=== PATIENT | male | born 1965 | race Caucasian/White ===

== ENCOUNTER → 2016-03-28 | Outpatient (CLI) | payer OTHER ==
--- NOTE | 2016-03-29 02:19 | REP ---
Clinical: Acute cough . Comparison: 02/17/2016 . Technique: PA and lateral. Findings: The mediastinum and cardiac silhouette are normal. The lung thomas are clear and without acute consolidation, effusion, or pneumothorax. The skeletal structures are intact and normal. Impression: 1. No acute cardiopulmonary process. If the patient remains symptomatic consider chest CT for further investigation. Signed by Ajay Navarrete MD 03/29/2016 02:10 A
== END ==
LOC: M WUC 17:06
PROVIDERS: ATTEND Physician Assistant
DX: J10.1 Influenza due to other identified influenza virus with other respiratory manifestations (principal); R05 Cough

== ENCOUNTER 2016-07-29 16:17 | Emergency (ER) | payer OTHER ==
[~2016-07-29] VITALS: Ht 177.8 cm; Wt 149.7 kg
[2016-07-29] MEDS ORDERED: LISI-538 PO (16:45)
--- NOTE | 2016-07-29 17:58 | REP ---
AP AND LATERAL LEFT FOOT, TWO VIEWS: HISTORY: Heel pain. There is no acute fracture or dislocation. The joint spaces are normal in appearance. A small osteophyte is present on the posterior calcaneus. IMPRESSION: There is no acute fracture or dislocation. Signed by Phillip Pearson MD 07/29/2016 06:49 P
[2016-07-29] MEDS ORDERED: NORCO, ANEXSIA 5/325MG TABLET (HYDROcodone/ACETAMINOPHEN) PO ONE (18:30)
[2016-07-29] MEDS ORDERED: INDO50CA PO (18:41)
[2016-07-29 19:09] VITALS: BP 198/113
== END 2016-07-29 19:11 | disposition home or self-care (01) ==
LOC: M ED 17:30
DX: M77.42 Metatarsalgia, left foot (principal); M76.62 Achilles tendinitis, left leg; I10 Essential (primary) hypertension; Z79.899 Other long term (current) drug therapy; Z88.0 Allergy status to penicillin

== ENCOUNTER → 2016-11-16 | Outpatient (REF) | payer OTHER ==
[~2016-11-16] MED LIST: INDO50CA PO; LISI-538 PO
== END ==
LOC: M LAB REF 19:42
PROVIDERS: ATTEND Physician Assistant Medical
DX: J02.9 Acute pharyngitis, unspecified (principal)

== ENCOUNTER → 2017-03-14 | Outpatient (CLI) | payer OTHER ==
[2017-03-14 13:40] LABS: BASO # 0.1 10^3/uL (0.0-0.2); BASO % 0.6 % (0.0-1.0); EOS # 0.4 10^3/uL (0.0-0.50); HEMATOCRIT 47.2 % (42.0-52.0); IMMATURE GRANULOCYTE % 0.5 % (0-0); LYMPH # 2.5 10^3/uL (1.5-4.5); LYMPH % 28.3 % (24.0-44.0); MEAN CORPUSCULAR HGB CONC 33.9 g/dl (32.0-36.5); MEAN CORPUSCULAR VOLUME 85.5 fl (80.0-96.0); MONO # 0.8 10^3/uL (0.0-0.8); MONO % 8.9 % (0.0-5.0); NEUTROPHILS % 57.7 % (36.0-66.0); PLATELET COUNT, AUTOMATED 226 10^3/uL (150-450); RED BLOOD COUNT 5.52 10^6/uL (4.30-6.10); RED CELL DISTRIBUTION WIDTH 12.5 % (11.5-14.5); WHITE BLOOD COUNT 8.7 10^3/uL (4.0-10.0)
[2017-03-14 14:00] LABS: ALBUMIN 4.3 GM/DL (3.2-5.2); ALKALINE PHOSPHATASE 86 U/L (45-117); ALT/SGPT 84 U/L (12-78); ANION GAP 6 MEQ/L (8-16); AST/SGOT 46 U/L (7-37); BILIRUBIN,TOTAL 0.6 MG/DL (0.2-1.0); BLOOD UREA NITROGEN 17 MG/DL (7-18); CALCIUM LEVEL 8.8 MG/DL (8.5-10.1); CARBON DIOXIDE LEVEL 29 MEQ/L (21-32); CHLORIDE LEVEL 103 MEQ/L (98-107); CREATININE FOR GFR 1.19 MG/DL (0.70-1.30); FREE T4 1.09 NG/DL (0.76-1.46); GLOMERULAR FILTRATION RATE > 60.0 (>56); GLUCOSE, FASTING 143 MG/DL (70-105); PHOSPHORUS LEVEL 2.2 MG/DL (2.5-4.9); POTASSIUM SERUM 4.2 MEQ/L (3.5-5.1); SODIUM LEVEL 138 MEQ/L (136-145); TOTAL PROTEIN 7.6 GM/DL (6.4-8.2)
[2017-03-14 14:19] LABS: ESTIMATED AVERAGE GLUCOSE 128 MG/DL (60-110); HEMOGLOBIN A1c 6.1 %
== END ==
LOC: M WUC 10:39
DX: I10 Essential (primary) hypertension (principal)
CPT/HCPCS: 84443

== ENCOUNTER 2017-04-05 09:17 | Emergency (ER) | payer OTHER ==
[2017-04-05 10:11] LABS: BASO % 0.4 % (0.0-1.0); EOS # 0.4 10^3/uL (0.0-0.50); EOS % 4.4 % (0.0-3.0); HEMATOCRIT 44.9 % (42.0-52.0); HEMOGLOBIN 15.5 g/dl (14.0-18.0); IMMATURE GRANULOCYTE % 0.5 % (0-0); LYMPH # 2.4 10^3/uL (1.5-4.5); LYMPH % 28.6 % (24.0-44.0); MEAN CORPUSCULAR HEMOGLOBIN 29.3 pg (27.0-33.0); MEAN CORPUSCULAR HGB CONC 34.5 g/dl (32.0-36.5); MEAN CORPUSCULAR VOLUME 84.9 fl (80.0-96.0); MONO # 0.6 10^3/uL (0.0-0.8); MONO % 7.1 % (0.0-5.0); PLATELET COUNT, AUTOMATED 233 10^3/uL (150-450); RED BLOOD COUNT 5.29 10^6/uL (4.30-6.10); RED CELL DISTRIBUTION WIDTH 12.5 % (11.5-14.5); WHITE BLOOD COUNT 8.4 10^3/uL (4.0-10.0)
[2017-04-05] MEDS: ONDANSETRON 4MG/2ML VIAL (J2405) IV ×2 (10:13)
[2017-04-05] MEDS: KETOROLAC 30 MG/ML VIAL (J1885) IV ×2 (10:13)
[2017-04-05] MEDS: NS 1,000 ML IV ×2 (10:14)
[2017-04-05] MEDS: MORPHINE 4 MG/ML 1ML VIAL (J2270) IV ×4 (10:14→11:01)
[2017-04-05] MEDS: LISINOPRIL 40 MG TAB PO ×2 (10:14)
[2017-04-05 10:48] LABS: ALBUMIN 4.1 GM/DL (3.2-5.2); ALBUMIN/GLOBULIN RATIO 1.08 (1.00-1.93); ALKALINE PHOSPHATASE 80 U/L (45-117); ALT/SGPT 114 U/L (12-78); AMYLASE 44 U/L (25-115); ANION GAP 7 MEQ/L (8-16); AST/SGOT 50 U/L (7-37); BILIRUBIN,DIRECT 0.2 MG/DL (0.0-0.2); BILIRUBIN,TOTAL 0.7 MG/DL (0.2-1.0); BLOOD UREA NITROGEN 16 MG/DL (7-18); CALCIUM LEVEL 8.9 MG/DL (8.5-10.1); CARBON DIOXIDE LEVEL 28 MEQ/L (21-32); CHLORIDE LEVEL 107 MEQ/L (98-107); CREATININE FOR GFR 1.33 MG/DL (0.70-1.30); GLOMERULAR FILTRATION RATE > 60.0 (>56); GLUCOSE, FASTING 125 MG/DL (70-100); LIPASE 129 U/L (73-393); POTASSIUM SERUM 3.9 MEQ/L (3.5-5.1); SODIUM LEVEL 142 MEQ/L (136-145); TOTAL PROTEIN 7.9 GM/DL (6.4-8.2)
[2017-04-05 11:04] LABS: KETONE, URINE AUTO RFX NEGATIVE (NEGATIVE); LEUKOCYTE ESTERASE UR AUTO RFX NEGATIVE (NEGATIVE); MUCUS, URINE RFX SMALL (NEGATIVE); NITRITE, URINE AUTO RFX NEGATIVE (NEGATIVE); RBC, URINE AUTO RFX TNTC /HPF (0-3); SPECIFIC GRAVITY UR AUTO RFX 1.023 (1.002-1.035); SQUAM EPITHELIAL CELL UR AURFX 0 /HPF (0-6); WBC, URINE AUTO RFX 2 /HPF (0-3)
[2017-04-05] MEDS: NORCO 5/325MG TABLET (BULK FOR ED) PO ×2 (11:59)
== END 2017-04-05 12:13 | disposition home or self-care (01) ==
LOC: M ED 09:17
DX: N23 Unspecified renal colic (principal); N13.30 Unspecified hydronephrosis; I10 Essential (primary) hypertension; Z79.899 Other long term (current) drug therapy; Z88.0 Allergy status to penicillin
CPT/HCPCS: J2270; J2405

== ENCOUNTER 2017-10-30 15:30 | Emergency (ER) | payer OTHER ==
[2017-10-30] MEDS: ASPIRIN 81 MG CHEW TABLET PO (14:41)
[2017-10-30] MEDS: ACETAMINOPHEN TAB 650MG DOSE (2X325MG) PO (14:41)
[2017-10-30 14:50] LABS: BASO # 0.1 10^3/uL (0.0-0.2); BASO % 0.3 % (0.0-1.0); EOS # 0.3 10^3/uL (0.0-0.50); EOS % 1.8 % (0.0-3.0); IMMATURE GRANULOCYTE % 0.5 % (0-3.0); LYMPH # 1.5 10^3/uL (1.5-4.5); LYMPH % 10.2 % (24.0-44.0); MEAN CORPUSCULAR HEMOGLOBIN 29.2 pg (27.0-33.0); MEAN CORPUSCULAR VOLUME 85.8 fl (80.0-96.0); MONO # 1.1 10^3/uL (0.0-0.8); MONO % 7.3 % (0.0-5.0); NEUTROPHILS # 11.8 10^3/uL (1.8-7.7); NEUTROPHILS % 79.9 % (36.0-66.0); PLATELET COUNT, AUTOMATED 211 10^3/uL (150-450); RED BLOOD COUNT 5.48 10^6/uL (4.30-6.10); RED CELL DISTRIBUTION WIDTH 12.6 % (11.5-14.5); WHITE BLOOD COUNT 14.7 10^3/uL (4.0-10.0)
[2017-10-30 15:15] LABS: ALBUMIN 4.4 GM/DL (3.2-5.2); ALKALINE PHOSPHATASE 75 U/L (45-117); ALT/SGPT 85 U/L (12-78); AMYLASE 43 U/L (25-115); ANION GAP 11 MEQ/L (8-16); AST/SGOT 46 U/L (7-37); BILIRUBIN,DIRECT 0.2 MG/DL (0.0-0.2); BILIRUBIN,TOTAL 0.9 MG/DL (0.2-1.0); BLOOD UREA NITROGEN 18 MG/DL (7-18); CALCIUM LEVEL 8.8 MG/DL (8.5-10.1); CARBON DIOXIDE LEVEL 25 MEQ/L (21-32); CHLORIDE LEVEL 105 MEQ/L (98-107); CPK CREATINE PHOSPHOKINASE 275 U/L (39-308); CREATININE FOR GFR 1.22 MG/DL (0.70-1.30); GLOMERULAR FILTRATION RATE > 60.0 (>56); GLUCOSE, FASTING 92 MG/DL (70-100); LIPASE 116 U/L (73-393); POTASSIUM SERUM 3.9 MEQ/L (3.5-5.1); SODIUM LEVEL 141 MEQ/L (136-145); TOTAL PROTEIN 8.4 GM/DL (6.4-8.2); TROPONIN I < 0.02 NG/ML (< 0.10)
[2017-10-30 15:20] LABS: CK-MB VALUE MASS 4.4 NG/ML (<3.6); NT-PRO BNP 125 PG/ML (<125); THYROID STIMULATING HORMONE 0.619 uIU/ML (0.358-3.740)
[2017-10-30 15:47] LABS: INFLUENZA A AMPLIFICATION NEGATIVE (NEGATIVE); INFLUENZA B AMPLIFICATION NEGATIVE (NEGATIVE)
[2017-10-30] MEDS: GI COCKTAIL 50ML BTL(HYOSCYAMINE/MAALOX/LIDOCAINE VISCOUS)(1:3:1) PO (16:45)
[2017-10-30 19:09] LABS: CK-MB VALUE MASS 2.8 NG/ML (<3.6); CPK CREATINE PHOSPHOKINASE 216 U/L (39-308); MB/CK RELATIVE INDEX 1.29 (< OR =4); TROPONIN I < 0.02 NG/ML (< 0.10)
[2017-10-30] MEDS: LISINOPRIL 40 MG TAB PO (20:03)
== END 2017-10-30 20:05 | disposition home or self-care (01) ==
LOC: M ED 15:30
DX: B34.9 Viral infection, unspecified (principal); R50.9 Fever, unspecified; R10.13 Epigastric pain; I10 Essential (primary) hypertension; K82.1 Hydrops of gallbladder; N40.0 Benign prostatic hyperplasia without lower urinary tract symptoms; Z82.49 Family history of ischemic heart disease and other diseases of the circulatory system; Z88.0 Allergy status to penicillin; Z79.899 Other long term (current) drug therapy
CPT/HCPCS: 71046

== ENCOUNTER 2020-05-17 22:40 | Observation (INO) | payer BC, OTHER ==
[~2020-05-17] VITALS: Ht 177.8 cm; Wt 126.4 kg
[~2020-05-17 22:40] MED LIST changes: +DOXY150C PO; +FLOM0.4C39 PO; +HYDR-3715 PO; +IBUP-1022 PO; -INDO50CA PO; +INDO50CA91 PO; -LISI-538 PO; +LISI20TA33 PO; +LISI40TA4 PO; +ZOFR4TAB14 PO
[2020-05-17] MEDS ORDERED: ECOT81TA5 PO (23:34)
[2020-05-17] MEDS ORDERED: PRED20TA PO (23:34)
[2020-05-17] MEDS ORDERED: IVER1TAB PO (23:34)
[2020-05-17] MEDS ORDERED: BENZ200C70 PO (23:34)
[2020-05-18] VITALS (11 sets, daily range): BP systolic 112–149; BP diastolic 66–75; O2SAT 89–96
[2020-05-18 00:06] LABS: ABG BASE EXCESS 0.7 (-2.0-2.0); ABG HCO3 23.6 MEQ/L (22.0-26.0); ABG O2 SATURATION 90.5 % (95.0-99.0); ABG PARTIAL PRESSURE CO2 33.4 mmHg (35.0-45.0); ABG PARTIAL PRESSURE O2 56.3 mmHg (75.0-100.0); ABG STANDARD HCO3 24.9 MEQ/L (22.0-26.0); ABG TOTAL CO2 24.6 MEQ/L (22.0-29.0); ABG pH (ARTERIAL) 7.467 UNITS (7.350-7.450)
[2020-05-18 00:20] LABS: HEMATOCRIT 50.4 % (42.0-52.0); HEMOGLOBIN 16.9 g/dl (13.5-17.5); MEAN CORPUSCULAR HEMOGLOBIN 28.5 pg (27.0-33.0); MEAN CORPUSCULAR HGB CONC 33.5 g/dl (32.0-36.5); PLATELET COUNT, AUTOMATED 170 10^3/uL (150-450); RED BLOOD COUNT 5.93 10^6/uL (4.30-6.10); WHITE BLOOD COUNT 4.5 10^3/uL (4.0-10.0)
[2020-05-18 00:31] LABS: D-DIMER QUANT 466.54 ng/ml (<500)
[2020-05-18 00:34] LABS: ALBUMIN 3.2 GM/DL (3.2-5.2); ALT/SGPT 96 U/L (12-78); BILIRUBIN,DIRECT 0.4 MG/DL (0.0-0.2); BILIRUBIN,TOTAL 0.7 MG/DL (0.2-1.0); BLOOD UREA NITROGEN 23 MG/DL (7-18); CALCIUM LEVEL 8.3 MG/DL (8.5-10.1); CARBON DIOXIDE LEVEL 30 MEQ/L (21-32); CHLORIDE LEVEL 104 MEQ/L (98-107); CK-MB VALUE MASS 1.1 NG/ML (<3.6); CPK CREATINE PHOSPHOKINASE 370 U/L (39-308); GLOMERULAR FILTRATION RATE > 60.0 (>56); GLUCOSE, FASTING 152 MG/DL (70-100); NT-PRO BNP 67 PG/ML (<125); SODIUM LEVEL 140 MEQ/L (136-145); TOTAL PROTEIN 7.1 GM/DL (6.4-8.2); TROPONIN I < 0.02 NG/ML (< 0.10)
--- NOTE | 2020-05-18 00:39 | REPVR ---
PROCEDURE INFORMATION: Exam: XR Chest Exam date and time: 05/17/2020 11:59 PM Age: 54 years old Clinical indication: Cough and dyspnea; Additional info: Dyspnea/cough TECHNIQUE: Imaging protocol: XR of the chest Views: 1 view. COMPARISON: CR Chest, 2 view PA, Lat 10/30/2017 2:38 PM FINDINGS: Lungs: In bibasilar infiltrates and atelectasis since the prior study. Slight cephalization of blood flow. Pleural spaces: Probable small left pleural effusion. Heart/Mediastinum: Borderline cardiomegaly despite the AP and lordotic projection. Bones/joints: Unremarkable. Soft tissues: There are generous overlying soft tissues. IMPRESSION: Borderline cardiomegaly with bibasilar infiltrates and atelectasis and probable left pleural effusion suggesting mild interval congestive failure since 10/30/2017. Pneumonia is not excluded. Electronically signed by: Octavio Chaidez On 05/18/2020 00:39:07 AM
[2020-05-18 00:59] LABS: ATYPICAL LYMPH 8 % (0-5); LYMPHOCYTES 19 % (16-44); MONOCYTES 7 % (0-5); NEUTROPHILS 66 % (28-66); PLATELET ESTIMATE NORMAL (NORMAL)
[2020-05-18] MEDS ORDERED: ACETAMINOPHEN TAB 650MG DOSE (2X325MG) PO SCH (02:05)
[2020-05-18] MEDS ORDERED: ALBUTEROL SULFATE 2.5 MG/0.5 ML INH NEB SOLN NEB PRN (02:05)
[2020-05-18] MEDS ORDERED: ALBUTEROL 90 MCG/ACT 8GM HFA INHALER INH PRN (02:20)
[2020-05-18 02:25] LABS: INR 0.92; PROTHROMBIN TIME 12.6 SECONDS (12.5-14.3)
[2020-05-18 02:26] LABS: PARTIAL THROMBOPLASTIN TIME 28.1 SECONDS (24.2-38.5)
[2020-05-18 02:35] LABS: C REACTIVE PROTEIN QUANTITATIV 2.24 MG/DL (0.00-0.30); FERRITIN 1867 NG/ML (26-388); LDH LACTATE DEHYDROGENASE 416 U/L (87-241)
--- NOTE | 2020-05-18 02:42 | HPEPDOC ---
[facility] Medical History & Physical Date of Admission May 18, 2020 Date of Service: May 18, 2020 Primary Care Physician: Feliz Santo Attending Physician: JUAN SANDOVAL MD History and Physical CHIEF COMPLAINT: [SOB.] HISTORY OF PRESENT ILLNESS: [This is a 54 year old male who presents to the ED approx. 10 days after he began having symptoms of shortness of breath, cough, and fatigue. Patient reported to urgent care for these symptoms on 05/10 and was subsequently diagnosed with COVID19. Patient states that his symptoms have not been improving and have been getting worse. Patient has taken tylenol and nyquil for his symptoms at home to mild relief. Patient states that he has albuterol at home but is unable to draw from the inhaler as the deep breath causes him discomfort and makes him cough. Patient states that his primary complaint is his shortness of breath. Patient also admits to nausea, vomiting, diarrhea, dark stools, malaise, headache. Patient denies purulent sputum, hematemesis, dizziness, lightheadedness, syncope, chest pain. ] REVIEW OF SYSTEMS: CONSTITUTIONAL: [See HPI]. HEENT: [See HPI]. CARDIOVASCULAR: [See HPI]. RESPIRATORY: [See HPI]. GASTROINTESTINAL: [See HPI]. GENITOURINARY: [Denies dysuria]. SKIN: [Denies rash]. MUSCULOSKELETAL: [Denies joint pain]. NEUROLOGICAL: [See HPI]. ENDOCRINE: [Denies hx of diabetes]. HEMATOLOGIC/LYMPHATIC: [Denies easy bruising, edema]. PAST MEDICAL HISTORY: 1. [HTN]. 2. [MELISSA]. 3. [Obesity]. SOCIAL HISTORY: Tobacco use:[no] ETOH: [occasional] Illicit drug use: [no] ALLERGIES: Please see below. HOME MEDICATIONS: Please see below. PHYSICAL EXAMINATION: VITAL SIGNS: see below GENERAL APPEARANCE: [This is an acutely ill appearing 54 y/o M. He is sitting uncomfortably in bed and appear short of breath.]. HEENT: [No mass or lesion. EOMI. No scleral icterus. Nares patent. Oral mucosa moist without erythema]. CARDIOVASCULAR: [Regular rate, rhythm. No murmurs, rubs, gallops]. LUNGS: [Patient unable to take deep breaths without coughing. Rales heard throughout lung thomas.]. ABDOMEN: [Soft, tenderness to epigastrum, luq, llq.]. EXTREMITIES: [No peripheral edema. Good pulses. No clubbing, cyanosis.]. NEUROLOGICAL: [A+Ox3. Speech clear. No focal deficits.]. PSYCHIATRIC: [Mood and affect appear appropriate.]. LABORATORY DATA: See below. IMAGING: [CXR: FINDINGS: Lungs: In bibasilar infiltrates and atelectasis since the prior study. Slight cephalization of blood flow. Pleural spaces: Probable small left pleural effusion. Heart/Mediastinum: Borderline cardiomegaly despite the AP and lordotic projection. Bones/joints: Unremarkable. Soft tissues: There are generous overlying soft tissues. IMPRESSION: Borderline cardiomegaly with bibasilar infiltrates and atelectasis and probable left pleural effusion suggesting mild interval congestive failure since 10/30/2017. Pneumonia is not excluded. ] MICROBIOLOGY: Please see below. ASSESSMENT/PLAN: 1. [Hypoxemia secondary to COVID19 - Patient has been experiencing increasing shortness of breath over the past 10 days. Upon presentation to the ER, he was found to be hypoxic with sats in the low 90s. As of my examination of the patient, he was on 3L nasal cannula with sats around 92-94. Although this patient's labs and vitals are not at poor levels, I am concerned that due to this patient's comorbidities and his clinical picture, he is at a high risk of requiring increasingly high supplemental O2. We will keep a close eye on this patient's O2 levels and continuous pulse oximetry has been ordered. - Baseline inflammatory markers ordered - We will begin dexamethasone - I am not beginning remdesevir due to this patient being well out of the 5 day window. - Albuterol, tylenol ordered - We will give this patient IVF due to his poor oral intake at home - I believe we should have a low threshold for consult pulm/staff internist office based only in this patient 2. Melena - Patient reports black stools. - Stool occult blood ordered to investigate small possibility of gi bleed - IV PPI 3. HTN - continue lisinopril 4. MELISSA - Patient states he does not use CPAP at home. We can consider using it while in the hospital due to patient's condition. 5. Obesity - Unfortunately, this patient's weight makes his prognosis more poor and affects treatment. - Patient should follow up with PCP outpatient for diet/lifestyle modification discussions 6. DVT prophylaxis - Lovenox per protocol]. Vital Signs Vital Signs Date Time Temp Pulse Resp B/P (MAP) Pulse Ox O2 Delivery O2 Flow Rate FiO2 05/18/20 00:40 54 19 94 Nasal Cannula 3.0 05/17/20 23:14 99.1 125/73 (90) Laboratory Data Labs 24H Laboratory Tests 2 05/17/20 23:44: Blood Gas Bicarbonate Standard 24.9, Arterial Blood pH 7.467H, Arterial Blood Partial Pressure CO2 33.4L, Arterial Blood Partial Pressure O2 56.3L, Arterial Blood Total CO2 24.6, Arterial Blood HCO3 23.6, Arterial Blood Base Excess 0.7, Arterial Blood Oxygen Saturation 90.5L 05/17/20 23:52: Neutrophils (%) (Auto) , Nucleated Red Blood Cells % (auto) 0.0, Neutrophils 66, Lymphocytes (Manual) 19, Monocytes (Manual) 7H, Atypical Lymphocytes 8H, Platelet Estimate NORMAL, D-Dimer, Quantitative 466.54, Anion Gap 6L, Glomerular Filtration Rate > 60.0, Calcium Level 8.3L, Total Bilirubin 0.7, Direct Bilirubin 0.4H, Aspartate Amino Transf (AST/SGOT) 74H, Alanine Aminotransferase (ALT/SGPT) 96H, Alkaline Phosphatase 58, Total Creatine Kinase 370H, Creatine Kinase MB 1.1, Creatine Kinase MB Relative Index 0.30, Troponin I < 0.02, VK-Ywz-X-Type Natriuretic Peptide 67, Total Protein 7.1, Albumin 3.2, Albumin/Globulin Ratio 0.8 05/17/20 23:59: POC Troponin I (Misc) 0.00 05/18/20 02:02: CBC/BMP Laboratory Tests 05/17/20 23:52 Microbiology Microbiology 05/17/20 Blood Culture, Received Pending 05/17/20 Blood Culture, Received Pending Home Medications Scheduled Amlodipine Besylate (Amlodipine Besylate) 10 Mg Tablet, 10 MG PO DAILY Aspirin (Ecotrin) 81 Mg Tablet.dr, 81 MG PO DAILY Dexamethasone (Dexamethasone) 1.5 Mg Tab.ds.pk, 3 MG PO DAILY Take 2 Tabs once daily for 5 days Lisinopril (Lisinopril) 40 Mg Tablet, 40 MG PO DAILY Pantoprazole Sodium (Pantoprazole Sodium) 40 Mg Tablet.dr, 40 MG PO DAILY Scheduled PRN Albuterol Sulfate (Ventolin Hfa) 18 Gm Hfa.aer.ad, 2 PUFFS INH QID PRN for SHORTNESS OF BREATH Benzonatate (Benzonatate) 200 Mg Capsule, 200 MG PO Q8H PRN for COUGH Ibuprofen (Ibuprofen) 200 Mg Capsule, 600 MG PO TID PRN for PAIN Ondansetron HCl (Ondansetron HCl) 4 Mg Tablet, 4 MG PO TID PRN for NAUSEA OR VOMITING Allergies Coded Allergies: Penicillins (Verified Allergy, Unknown, 05/18/20) A-FIB/CHADSVASC A-FIB History Current/History of A-Fib/PAF?: No Attending Note Attending Note time of service 250am is a 54 yr old M w a hx of HTN, MELISSA and obesity who is admitted for management of hypoxemia 2/2 COVID. He is also c/o melena and will be treated for presumed UGIB pending heme occult. rest per GONZALO Torres's H&P EMILY TORRES May 18, 2020 02:42 JUAN SANDOVAL MD May 18, 2020 07:10
[2020-05-18 05:05] LABS: APPEARANCE, URINE CLEAR (CLEAR); BACTERIA, URINE AUTO NEGATIVE (NEGATIVE); BILIRUBIN, URINE AUTO NEGATIVE (NEGATIVE); BLOOD, URINE BLOOD NEGATIVE (NEGATIVE); COLOR, URINE YELLOW (YELLOW); GLUCOSE, URINE (UA) AUTO NEGATIVE (NEGATIVE); KETONE, URINE AUTO NEGATIVE (NEGATIVE); LEUKOCYTE ESTERASE, URINE AUTO NEGATIVE (NEGATIVE); MUCUS, URINE SMALL (NEGATIVE); NITRITE, URINE AUTO NEGATIVE (NEGATIVE); PROTEIN, URINE AUTO NEGATIVE (NEGATIVE); RBC, URINE AUTO 1 /HPF (0-3); SPECIFIC GRAVITY URINE AUTO 1.023 (1.002-1.035); SQUAMOUS EPITHELIAL CELL UR AU 0 /HPF (0-6); WBC, URINE AUTO 1 /HPF (0-3)
[2020-05-18] MEDS ORDERED: PANTOPRAZOLE 40MG VIAL (C9113 PER 1) IV SCH ×2 (05:10→09:00)
[2020-05-18] MEDS: PANTOPRAZOLE 40MG VIAL (C9113 PER 1) IV SCH ×2 (08:17→22:04)
[2020-05-18] MEDS: dexameTHASONE 4 MG/ML 1ML VIAL (J1100 PER 1MG) IV SCH (08:17)
[2020-05-18] MEDS ORDERED: IBUP200C29 PO (08:34)
[2020-05-18] MEDS ORDERED: VENTAER INH (08:34)
[2020-05-18] MEDS ORDERED: ONDA-83 PO (08:34)
[2020-05-18] MEDS ORDERED: AMLO1TAB25 PO (08:34)
[2020-05-18] MEDS ORDERED: LISI40TA4 PO (08:34)
[2020-05-18] MEDS ORDERED: AZIT-10 PO (08:34)
[2020-05-18] MEDS ORDERED: ENOXAPARIN 150MG/ML SYRINGE (J1650 PER 10MG) SC SCH (09:00)
[2020-05-18] MEDS ORDERED: TAMSULOSIN 0.4 MG CAP PO SCH (09:00)
[2020-05-18] MEDS ORDERED: ASPIRIN 81MG ENTERIC TABLET PO SCH (09:00)
[2020-05-18] MEDS: lisinopriL 40 MG TAB PO SCH (10:02)
[2020-05-18] MEDS ORDERED: REMDESIVIR 200 MG in NS 250 ML IV ONE (15:00)
--- NOTE | 2020-05-18 15:19 | IPNPDOC ---
Date Seen The patient was seen on 05/18/20. Progress Note SUBJECTIVE: Patient was seen and examined this morning. He continues to have shortness and cough. He denies any chest pain or tightness. There have been no adverse events reported overnight OBJECTIVE PHYSICAL EXAMINATION: VITAL SIGNS: Please see below. GENERAL: Awake, alert, and oriented. Appears in no acute distress. Lying in bed comfortably. HEENT: Atraumatic, normocephalic. Eyes are nonicteric. Trachea is midline. Mucous membranes are pink and moist. Nasal cannula is in place CARDIOVASCULAR: Normal S1, S2. Regular rate and rhythm. No clicks rubs or murmurs. RESPIRATORY: Bilateral crackles in the lower lung thomas. No wheezing or rhonchi. Symmetric chest expansion. ABDOMINAL: Soft. Obese. Nondistended. Nontender. Normoactive bowel sounds throughout EXTREMITIES: No edema. Full and equal pulses in bilateral upper and lower extremities. NEUROLOGICAL: No focal neurological deficits PSYCHOLOGICAL: Mood and affect appear appropriate LABORATORY DATA, IMAGING STUDIES, MICROBIOLOGY: Please see below. DVT prophylaxis ordered?: Lovenox ASSESSMENT AND PLAN: Patient is a 54 year old male with a past medical history significant for hypertension, obesity, and hyperlipidemia who presented to [facility] for worsening shortness of breath and cough. Patient developed cough on 05/06/20. He subsequently tested positive for COVID-19 on 05/10/20. Since that time he has developed worsening shortness of breath and cough and presented on 05/18/20. PROBLEMS: 1. Hypoxia 2/2 COVID-19 Pneumonia -Patient presented with worsening shortness of breath, cough, and bilateral pulmonary infiltrates on chest x-ray. COVID-19 test was positive on 05/10/20. Patients onset of symptoms was around 05/06/20. -Continues to be hypoxic. Requiring 4L of NC currently. -Does not appear to be a secondary bacterial pneumonia at this point. Additionally procalcitonin is not elevated making this unlikely. Will not add antibiotics -Will encourage proning when awake. -Encourage out of bed to chair -Incentive spirometry ordered -Continue Albuterol HFA -Continue Decadron 6mg IV daily -Patient does appear to be at the end of the viral replication stage of infection and would therefore likely benefit from Remdesivir. Will give loading dose today 2. Pleural effusion and Cardiomegaly -Patient has cardiomegaly and a left sided pleural effusion on chest x-ray. Possibly suggestive of vascular congestion. No prior history of CHF. Will order Echocardiogram. He does have hypertension and MELISSA for which he is noncompliant with CPAP. Likely has some degree of pulmonary hypertension. Echocardiogram will help further evaluate this 3. Hypertension -Continue patients lisinopril 4. Elevated Transaminases -Mildly elevated transaminases. Likely secondary to fatty liver disease although he was reportedly started on Ivermectin by his PCP for treatment of his COVID-19. -His Ivermectin will be discontinued during hospitalization and on discharge. There is no current available evidence to suggest benefit of Ivermectin in COVID-19. Additionally this medication can cause transaminase elevation. - He is receiving Remdesivir which may increase transaminases. Will trend. Otherwise patient will need to follow-up outpatient for management and trending of his LFTs 5. Dark Stools -Patient had mentioned dark stools at one point. He has not mentioned this to me today. A FOBT has been ordered. Hgb is stable at 16.9. There does not appear to be a GI bleed however will monitor 6. Obstructive Sleep Apnea -Reported history of MELISSA. Not on CPAP at home. Anticipate that this may contribute to worsening hypoxia overnight. 7. GI prophylaxis -Continue Protonix 8. DVT prophylaxis -Reduced Lovenox to 40mg daily. No indication for higher dosing at this point DISPOSITION: Plan for supportive care. Titrate oxygen, awake pronation, and incentive spirometry. Pending clinical improvement likely D/C home. Anticipate D/C home in 24-48 hours VS, I&O, 24H, [facility] Vital Signs/I&O Vital Signs Date Time Temp Pulse Resp B/P (MAP) Pulse Ox O2 Delivery O2 Flow Rate FiO2 05/18/20 13:33 95 Nasal Cannula 2.0 05/18/20 12:00 96.1 65 18 112/66 (81) I&O- Last 24 Hours up to 6 AM 05/18/20 06:00 Intake Total 240 ml Output Total 200 ml Balance 40 ml Laboratory Data 24H LABS Laboratory Tests 2 05/17/20 23:44: Blood Gas Bicarbonate Standard 24.9, Arterial Blood pH 7.467H, Arterial Blood Partial Pressure CO2 33.4L, Arterial Blood Partial Pressure O2 56.3L, Arterial Blood Total CO2 24.6, Arterial Blood HCO3 23.6, Arterial Blood Base Excess 0.7, Arterial Blood Oxygen Saturation 90.5L 05/17/20 23:52: Neutrophils (%) (Auto) , Nucleated Red Blood Cells % (auto) 0.0, Neutrophils 66, Lymphocytes (Manual) 19, Monocytes (Manual) 7H, Atypical Lymphocytes 8H, Platelet Estimate NORMAL, Prothrombin Time 12.6, Prothromb Time International Ratio 0.92, Activated Partial Thromboplast Time 28.1, Fibrinogen 578H, D-Dimer, Quantitative 466.54, Anion Gap 6L, Glomerular Filtration Rate > 60.0, Calcium Level 8.3L, Ferritin 1867H, Total Bilirubin 0.7, Direct Bilirubin 0.4H, Aspartate Amino Transf (AST/SGOT) 74H, Alanine Aminotransferase (ALT/SGPT) 96H, Alkaline Phosphatase 58, Lactate Dehydrogenase 416H, Total Creatine Kinase 370H, Creatine Kinase MB 1.1, Creatine Kinase MB Relative Index 0.30, Troponin I < 0.02, C-Reactive Protein, Quantitative 2.24H, EU-Hib-C-Type Natriuretic Peptide 67, Total Protein 7.1, Albumin 3.2, Albumin/Globulin Ratio 0.8 05/17/20 23:59: POC Troponin I (Misc) 0.00 05/18/20 02:02: Procalcitonin <0.05 05/18/20 02:26: Troponin I < 0.02 05/18/20 04:10: Urine Color YELLOW, Urine Appearance CLEAR, Urine pH 5.0, Urine Specific M[place] 1.023, Urine Protein NEGATIVE, Urine Glucose (Auto)(UA) NEGATIVE, Urine Ketones (Auto) NEGATIVE, Urine Blood NEGATIVE, Urine Nitrite NEGATIVE, Urine Bilirubin NEGATIVE, Urine Urobilinogen 4.0H, Urine Leukocyte Esterase (Auto) NEGATIVE, Urine WBC (Auto) 1, Urine RBC (Auto) 1, Urine Hyaline Casts (Auto) 0, Urine Bacteria (Auto) NEGATIVE, Urine Squamous Epithelial Cells 0, Urine Mucus (Auto) SMALL, Urine Sperm (Auto) CBC/BMP Laboratory Tests 05/17/20 23:52 Microbiology Microbiology 05/17/20 Blood Culture, Received Pending 05/17/20 Blood Culture, Received Pending GME ATTESTATION GME ATTESTATION My faculty preceptor for this patient encounter was physically present during the encounter and was fully available. All aspects of the patient interview, examination, medical decision making process, and medical care plan development were reviewed and approved by the faculty preceptor. The faculty preceptor is aware and concurs with the plan as stated in the body of this note and will attest to such by his/her cosignature. ATTENDING NOTE I, Redd Osborne MD, have independently examined this patient and performed my own physical exam, as well as reviewed the documentation and edited where necessary. I have discussed in detail with the resident / student the findings and plan of treatment as documented by the resident / student and edited their note. I agree with their findings and treatment plan and have edited their documentation DAVID BAR DO May 18, 2020 15:19 REDD OSBORNE MD May 20, 2020 09:53
[2020-05-18] MEDS ORDERED: SODIUM CHLORIDE 0.9% INJ 10 ML SYR IV ONE (17:00)
--- NOTE | 2020-05-18 17:35 | ECGEPIP ---
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
[2020-05-19] VITALS: O2SAT 94
[2020-05-19 04:00] VITALS: O2SAT 92
[2020-05-19 04:28] VITALS: BP 131/70
[2020-05-19 06:32] LABS: HEMATOCRIT 44.2 % (42.0-52.0); MEAN CORPUSCULAR HEMOGLOBIN 29.1 pg (27.0-33.0); MEAN CORPUSCULAR HGB CONC 33.9 g/dl (32.0-36.5); MEAN CORPUSCULAR VOLUME 85.8 fl (80.0-96.0); PLATELET COUNT, AUTOMATED 196 10^3/uL (150-450); RED BLOOD COUNT 5.15 10^6/uL (4.30-6.10); WHITE BLOOD COUNT 6.4 10^3/uL (4.0-10.0)
[2020-05-19 06:45] LABS: D-DIMER QUANT 306.29 ng/ml (<500)
[2020-05-19 06:59] LABS: ALT/SGPT 122 U/L (12-78); BILIRUBIN,DIRECT 0.4 MG/DL (0.0-0.2); BILIRUBIN,TOTAL 0.7 MG/DL (0.2-1.0); BLOOD UREA NITROGEN 20 MG/DL (7-18); CALCIUM LEVEL 8.4 MG/DL (8.5-10.1); CARBON DIOXIDE LEVEL 26 MEQ/L (21-32); CHLORIDE LEVEL 106 MEQ/L (98-107); CPK CREATINE PHOSPHOKINASE 214 U/L (39-308); CREATININE FOR GFR 1.02 MG/DL (0.70-1.30); FERRITIN 1279 NG/ML (26-388); GLOMERULAR FILTRATION RATE > 60.0 (>56); GLUCOSE, FASTING 147 MG/DL (70-100); LDH LACTATE DEHYDROGENASE 322 U/L (87-241); MAGNESIUM LEVEL 2.3 MG/DL (1.8-2.4); POTASSIUM SERUM 3.9 MEQ/L (3.5-5.1); SODIUM LEVEL 140 MEQ/L (136-145); TOTAL PROTEIN 6.4 GM/DL (6.4-8.2)
[2020-05-19 07:01] LABS: ATYPICAL LYMPH 5 % (0-5); LYMPHOCYTES 18 % (16-44); MONOCYTES 2 % (0-5); NEUTROPHILS 75 % (28-66); PLATELET ESTIMATE NORMAL (NORMAL)
[2020-05-19 08:00] VITALS: O2SAT 90
[2020-05-19 08:04] VITALS: BP 119/71
[2020-05-19] MEDS ORDERED: ENOXAPARIN 40MG/0.4ML SYRINGE (J1650 PER 10MG) SC SCH (09:00)
[2020-05-19] MEDS: PANTOPRAZOLE 40MG VIAL (C9113 PER 1) IV SCH (09:23)
[2020-05-19] MEDS: dexameTHASONE 4 MG/ML 1ML VIAL (J1100 PER 1MG) IV SCH (09:23)
[2020-05-19] MEDS: lisinopriL 40 MG TAB PO SCH (09:24)
[2020-05-19] MEDS ORDERED: PANT40TA29 PO (11:36)
[2020-05-19] MEDS ORDERED: DEXA1.5T7 PO (11:36)
[2020-05-19] MEDS ORDERED: REMDESIVIR 100 MG in NS 250 ML IV SCH (15:00)
[2020-05-19] MEDS ORDERED: SODIUM CHLORIDE 0.9% INJ 10 ML SYR IV SCH (16:00)
--- NOTE | 2020-05-19 17:43 | DS.PDOC ---
Discharge Summary General Date of Admission May 18, 2020 at 01:34 Date of Discharge 05/19/20 Attending Physician: REDD OSBORNE MD Specialist/Consultants Involve Patient's PCP is: Neelima Norris MD Discharge Summary PROCEDURES PERFORMED DURING STAY: [None]. ADMITTING DIAGNOSES: 1. Hypoxia 2/2 COVID-19 PNA 2. Transaminitis 3. MELISSA DISCHARGE DIAGNOSES: 1. Hypoxia 2/2 COVID-19 PNA 2. Transaminitis 3. MELISSA COMPLICATIONS/CHIEF COMPLAINT: Covid 19. HISTORY OF PRESENT ILLNESS: Patient is a 54 year old male with a past medical history significant for hypertension, obesity, and obstructive sleep apnea noncompliant with CPAP who presented to the [facility] ER with complaint of worsening shortness of breath. Patient stated that on 05/06/20 he had developed fever, chills, and a cough. He stated that this continued throughout the week. On 05/10/20 he was diagnosed with COVID-19. He was seen by his primary care provider and started on Azithromycin, prednisone, and Ivermectin. Patient stated that throughout the week he developed worsening shortness of breath and cough. On presentation to the ER the patient was hypoxic and requiring 6L NC. He was otherwise stable. Patient was admitted for further evaluation and management HOSPITAL COURSE: During patients hospitalization he was continued on supplemental oxygen. On presentation he did have mild elevation in transaminases which could be related to fatty liver vs ivermectin therapy. Additionally patient had noted that he had some episodes of dark stools at home before coming to the hospital. He denied any episodes of blood in his stool. He was given Remdesivir due to his hypoxia. Patient was instructed to continue with awake pronation, incentive spirometry, and physical therapy. He demonstrated improv ement in oxygenation and was titrated down to 2L NC. Patient was seen by physical therapy and found safe for discharge home with supplemental oxygen. Patient was recommended to follow-up with his PCP regarding his elevated transaminases. Additionally, he was instructed to follow-up with his PCP re garding his dark stools. On discharge patient was given 3mg of Dexamethasone daily for 5 days, albuterol HFA PRN, Benzonatate, and home oxygen. Patient was instructed to continue home quarantine per Public Health department guidelines DISCHARGE MEDICATIONS: Please see below. ALLERGIES: Please see below. PHYSICAL EXAMINATION ON DISCHARGE: VITAL SIGNS: Please see below. GENERAL: Awake, alert, and oriented. Appears in no acute distress. Sitting up on edge of bed. HEENT: Atraumatic, normocephalic. Eyes are nonicteric. Trachea is midline.Mucous membranes are pink and moist CARDIOVASCULAR EXAMINATION: Normal S1, S2. Regular rate and rhythm. No clicks, rubs, or murmurs RESPIRATORY EXAMINATION: Mild crackles throughout. No wheezes. No rhonchi. Symmetric chest expansion. ABDOMINAL EXAMINATION: Obese. Soft, nondistended. Nontender. Normoactive bowel sounds EXTREMITIES: No edema. Full and equal pulses in bilateral upper and lower extremities SKIN: No rashes or lesions NEUROLOGICAL EXAMINATION: No focal neurological deficits PSYCHIATRIC EXAMINATION: Mood and affect appear appropriate LABORATORY DATA: Please see below. IMAGING: PROCEDURE INFORMATION: Exam: XR Chest Exam date and time: 05/17/2020 11:59 PM Age: 54 years old Clinical indication: Cough and dyspnea; Additional info: Dyspnea/cough TECHNIQUE: Imaging protocol: XR of the chest Views: 1 view. COMPARISON: CR Chest, 2 view PA, Lat 10/30/2017 2:38 PM FINDINGS: Lungs: In bibasilar infiltrates and atelectasis since the prior study. Slight cephalization of blood flow. Pleural spaces: Probable small left pleural effusion. Heart/Mediastinum: Borderline cardiomegaly despite the AP and lordotic projection. Bones/joints: Unremarkable. Soft tissues: There are generous overlying soft tissues. IMPRESSION: Borderline cardiomegaly with bibasilar infiltrates and atelectasis and probable left pleural effusion suggesting mild interval congestive failure since 10/30/2017. Pneumonia is not excluded. Electronically signed by: Octavio Chaidez On 05/18/2020 00:39:07 AM PROGNOSIS: Good ACTIVITY: [As tolerated]. DIET: As tolerated DISCHARGE PLAN: Patient is to be discharged home on supplemental oxygen. He has been instructed to discontinue Ivermectin, Azithromycin, and Prednisone. He is to continue Dexamethasone, Benzonatate, and Albuterol HFA. Patient was recommended to take Zinc supplements. He is to follow-up with PCP in 7-10 days after quarantine DISPOSITION: [facility]. DISCHARGE INSTRUCTIONS: 1. Continue medications as prescribed 2. STOP Ivermectin, Prednisone, and Azithromycin 3. Follow-up with PCP for evaluation of dark stool and elevated transaminases DISCHARGE CONDITION: [Stable]. TIME SPENT ON DISCHARGE: Greater than 40 minutes. Vital Signs/I&Os Vital Signs Date Time Temp Pulse Resp B/P (MAP) Pulse Ox O2 Delivery O2 Flow Rate FiO2 05/19/20 08:04 98.1 60 19 119/71 (87) 90 Nasal Cannula 2.0 I&O- Last 24 Hours up to 6 AM 05/19/20 06:00 Intake Total 1790 ml Output Total 1050 ml Balance 740 ml Laboratory Data Labs 24H Laboratory Tests 2 05/19/20 05:28: Neutrophils (%) (Auto) , Nucleated Red Blood Cells % (auto) 0.0, Neutrophils 75H, Lymphocytes (Manual) 18, Monocytes (Manual) 2, Atypical Lymphocytes 5, Red Blood Cell Morphology NORMAL, Platelet Estimate NORMAL, Fibrinogen 425, D-Dimer, Quantitative 306.29, Anion Gap 8, Glomerular Filtration Rate > 60.0, Calcium Level 8.4L, Magnesium Level 2.3, Ferritin 1279H, Total Bilirubin 0.7, Direct Bilirubin 0.4H, Aspartate Amino Transf (AST/SGOT) 67H, Alanine Aminotransferase (ALT/SGPT) 122H, Alkaline Phosphatase 56, Lactate Dehydrogenase 322H, Total Creatine Kinase 214, Total Protein 6.4, Albumin 3.0L, Albumin/Globulin Ratio 0.9, Procalcitonin <0.05 05/19/20 11:35: Bedside Glucose (Misc Panel) 156H 05/19/20 14:09: Lab Scanned Report Miscellaneous Lab CBC/BMP Laboratory Tests 05/19/20 05:28 FSBS Laboratory Tests Test 05/19/20 11:35 Range/Units Bedside Glucose (Misc Panel) 156 70-105 MG/DL Microbiology Microbiology 05/17/20 Blood Culture - Preliminary, Resulted No growth after 24 hours . All specim... 05/17/20 Blood Culture - Preliminary, Resulted No growth after 24 hours . All specim... Discharge Medications Scheduled Amlodipine Besylate (Amlodipine Besylate) 10 Mg Tablet, 10 MG PO DAILY, (Reported) Aspirin (Ecotrin) 81 Mg Tablet.dr, 81 MG PO DAILY, (Reported) Dexamethasone (Dexamethasone) 1.5 Mg Tab.ds.pk, 3 MG PO DAILY Take 2 Tabs once daily for 5 days Lisinopril (Lisinopril) 40 Mg Tablet, 40 MG PO DAILY, (Reported) Pantoprazole Sodium (Pantoprazole Sodium) 40 Mg Tablet.dr, 40 MG PO DAILY Scheduled PRN Albuterol Sulfate (Ventolin Hfa) 18 Gm Hfa.aer.ad, 2 PUFFS INH QID PRN for SHORTNESS OF BREATH, (Reported) Benzonatate (Benzonatate) 200 Mg Capsule, 200 MG PO Q8H PRN for COUGH, (Reported) Ibuprofen (Ibuprofen) 200 Mg Capsule, 600 MG PO TID PRN for PAIN, (Reported) Ondansetron HCl (Ondansetron HCl) 4 Mg Tablet, 4 MG PO TID PRN for NAUSEA OR VOMITING, (Reported) Allergies Coded Allergies: Penicillins (Verified Allergy, Unknown, 05/18/20) GME ATTESTATION GME ATTESTATION My faculty preceptor for this patient encounter was physically present during the encounter and was fully available. All aspects of the patient interview, examination, medical decision making process, and medical care plan development were reviewed and approved by the faculty preceptor. The faculty preceptor is aware and concurs with the plan as stated in the body of this note and will attest to such by his/her cosignature. ATTENDING NOTE I, Redd Osborne MD, have independently examined this patient and performed my own physical exam, as well as reviewed the documentation and edited where necessary. I have discussed in detail with the resident / student the findings and plan of treatment as documented by the resident / student and edited their note. I agree with their findings and treatment plan and have edited their documentation. Total time spent on this discharge including coordination of care, review of chart, review and additions in the documentation of the resident and actual patient contact is around 35 minutes DAVID BAR DO May 19, 2020 17:43 REDD OSBORNE MD May 27, 2020 14:34
== END 2020-05-19 14:45 | disposition home health service (06) ==
LOC: M ED 22:40 → M ED INP 05-18 01:34 → INTOOBSV 05-18 01:34 → ENRESERV 05-18 03:31 → M 4MAIN 05-18 04:02
PROVIDERS: ADMIT Internal Medicine; ATTEND Internal Medicine
DX: U07.1 COVID-19 (principal); J12.82 Pneumonia due to coronavirus disease 2019; R09.02 Hypoxemia; R74.01 Elevation of levels of liver transaminase levels; J90 Pleural effusion, not elsewhere classified; I51.7 Cardiomegaly; I11.9 Hypertensive heart disease without heart failure; E66.9 Obesity, unspecified; Z79.899 Other long term (current) drug therapy; Z88.0 Allergy status to penicillin; G47.33 Obstructive sleep apnea (adult) (pediatric); Z79.82 Long term (current) use of aspirin
CPT/HCPCS: 36415; 36600; 71045; 80048; 80076; 81001; 82550; 82553; 82728; 82803; 83615; 83735; 83880; 84145; 84484; 85025; 85379; 85384; 85610; 85730; 86140; 87040; 93005; 93041; 94010; 94760; 96365; 96366; 96372; 96375; 96376; 97161; 97530; 99285; C9113; J1100; J1650